=== PATIENT | male | born 1950 | race Caucasian/White ===

== ENCOUNTER 2017-12-11 11:38 | Emergency (ER) | payer BC, MEDICARE ==
[2017-12-11] MEDS: HYDROCODONE/APAP (5/325) TAB PO (15:06)
[2017-12-11] MEDS: KETOROLAC 30 MG INJ IM (15:07)
== END 2017-12-11 16:55 | disposition home or self-care (01) ==
LOC: FTE 11:38
DX: M19.012 Primary osteoarthritis, left shoulder (principal); Z87.891 Personal history of nicotine dependence
CPT/HCPCS: 72040; 72100; 73030; 96372; 99284-25